=== PATIENT | male | born 1950 | race Caucasian/White ===

== ENCOUNTER 2017-07-04 21:38 | Inpatient (IN) | payer MEDICARE, OTHER ==
[~2017-07-04 21:38] MED LIST: ALEN1TAB48 PO; ALLO100T PO; APIX5TAB PO; FERR325T18 PO; FOLI800T PO; FURO20TA PO; GABA300C5 PO; LANTUS2P SQ; LISI-519 PO; METH2.5T PO; METO25TA3 PO; NOVONP2 SQ; PLAV75TA29 PO; PRED5TAB PO; VITA400T14 PO
[2017-07-04 21:47] VITALS: BP 114/78; PULSE 102; RESP 16; TEMP 98.8; O2SAT 98
[2017-07-04] MEDS ORDERED: PROTHROMBIN COMPLEX CONC INJ 3,500 UNITS in SYRINGE/BAG 1 EA IV ONE (23:00)
[2017-07-04] MEDS ORDERED: SODIUM CHLOR 0.9% 1000 ML INJ 1,000 ML IV SCH ×2 (23:04→23:30)
[2017-07-04] MEDS ORDERED: ACETAMINOPHEN 1000 MG/100 ML 100 ML IV PRN (23:15)
[2017-07-04] MEDS ORDERED: BISACODYL 10 MG SUPP RECTAL PRN (23:15)
[2017-07-04] MEDS ORDERED: MAGNESIUM HYDROXIDE SUSP 30 ML CUP PO PRN (23:15)
[2017-07-04] MEDS ORDERED: CHLORHEXIDINE GLUCONATE 2 % 1 PACK (2 CLOTHS) TOP PRN (23:15)
[2017-07-04] MEDS ORDERED: SENNOSIDES 8.6 MG TAB PO PRN (23:15)
[2017-07-04] MEDS ORDERED: MISCELLANEOUS NURSING INFORMATION XX SCH (23:15)
[2017-07-04] MEDS ORDERED: ONDANSETRON HCL 4 MG/2 ML VIAL IV PUSH PRN (23:15)
[2017-07-04] MEDS ORDERED: LACTULOSE SYRUP 20 GM/30 ML CUP PO PRN (23:15)
--- NOTE | 2017-07-04 23:15 | PD ---
HPI Chief Complaint: Injury Time Seen by Provider: 22:46 Travel History International Travel<30 days: No Contact w/Intl Traveler<30days: No Traveled to known affect area: No History of Present Illness HPI 67-year-old male was transferred from [facility] to the main ED for evaluation of intracranial hemorrhage. Patient has history of right leg DVT and CAD status post stents placement. Patient was on Coumadin and recently changed to Eliquis and Plavix. Patient has been walking around with a walker. Patient fell this afternoon. Patient is unable to tell me whether any loss of consciousness or head injury. Family members did not witness the fall. Family member found patient with laceration to the lower legs this afternoon and brought patient to the ED for evaluation. Patient denies any headache. Patient denies any facial pain. Patient denies any neck pain. Patient denies any chest pain or shortness of breath. Patient denies abdominal pain. Patient denies any focal weakness or numbness of the extremity. CT scan of the brain was done and patient was found to have subdural hemorrhage. Patient was transferred to the main ED for further treatment and admission. Patient has history of hypertension, diabetes, arthritis. PFSH Past Medical History Hx Anticoagulant Therapy: Yes Arthritis: Yes Cardiovascular Problems: Yes Diabetes: Yes Patient Takes Glucophage: No Hypertension: Yes Past Surgical History Coronary Stent: Yes Social History Alcohol Use: No Tobacco Use: No Substance Use: No Allergies-Medications (Allergen,Severity, Reaction): Coded Allergies: No Known Allergies (Verified Allergy, Severe, 07/04/17) Reported Meds & Prescriptions Reported Meds & Active Scripts Active Reported Novolin N Inj (Insulin Human NPH) 1,000 Unit/10 Ml Vial 0 SQ DIRECTED Sliding Scale As Directed. Lantus Inj (Insulin Glargine) 1,000 Unit/10 Ml Vial 8 Units SQ HS Furosemide 20 Mg Tab 20 Mg PO BID Allopurinol 100 Mg Tab 100 Mg PO DAILY Prednisone 5 Mg Tab 5 Mg PO DAILY Lisinopril 5 Mg Tab 5 Mg PO DAILY Plavix (Clopidogrel Bisulfate) 75 Mg Tab 75 Mg PO DAILY Ferrous Sulfate 325 Mg (65 Mg Iron) Tablet 325 Mg PO DAILY Metoprolol Tartrate 25 Mg Tab 25 Mg PO DAILY Folic Acid 0.8 Mg Tab 1,000 Mcg PO DAILY Vitamin D2 (Ergocalciferol) 400 Unit Tab 50,000 Units PO DAILY Eliquis (Apixaban) 5 Mg Tab 5 Mg PO BID Gabapentin 300 Mg Cap 300 Mg PO TID Methotrexate 2.5 Mg Tab 2.5 Mg PO Q7D Alendronate (Alendronate Sodium) 70 Mg Tab 70 Mg PO Q7D Review of Systems General / Constitutional: No: Fever Eyes: No: Visual changes HENT: No: Headaches Cardiovascular: No: Chest Pain or Discomfort Respiratory: No: Shortness of Breath Gastrointestinal: No: Abdominal Pain Genitourinary: No: Dysuria Musculoskeletal: No: Pain Skin: No Rash Neurologic: No: Weakness Psychiatric: No: Depression Endocrine: No: Polydipsia Hematologic/Lymphatic: No: Easy Bruising Physical Exam Narrative GENERAL: Well-nourished, well-developed patient. SKIN: Focused skin assessment warm/dry. HEAD: Normocephalic. EYES: No scleral icterus. No injection or drainage. Pupils status post cataract surgery. NECK: Supple, trachea midline. No JVD or lymphadenopathy. CARDIOVASCULAR: Regular rate and rhythm without murmurs, gallops, or rubs. RESPIRATORY: Breath sounds equal bilaterally. No accessory muscle use. GASTROINTESTINAL: Abdomen soft, non-tender, nondistended. MUSCULOSKELETAL: Patient had bilateral lower extremity avulsion lacerations. No active bleeding. BACK: Nontender without obvious deformity. No CVA tenderness. Neurologic exam: Patient is awake and alert oriented 3. Patient moves all extremity well. No obvious focal neurological deficit. Data Data Last Documented VS Vital Signs Date Time Temp Pulse Resp B/P (MAP) Pulse Ox O2 Delivery O2 Flow Rate FiO2 07/04/17 21:47 98.8 102 16 114/78 (90) 98 Orders Orders ^ Lab Follow Up (07/04/17 23:00) Prothrombin Complex Conc Inj (K[facility]ra In (07/04/17 23:00) MDM Medical Decision Making Medical Screen Exam Complete: Yes Emergency Medical Condition: Yes Differential Diagnosis Differential diagnosis includes subdural hemorrhage, lower extremity laceration. Narrative Course 67-year-old male with head injury and extremity injury. Status post fall. Patient is on Eliquis and Plavix. Patient has subdural hemorrhage. K Centra was order to be given. Patient will be admitted to trauma surgeon with consultation to neurosurgeon. Diagnosis Primary Impression: Subdural hemorrhage Additional Impressions: Anticoagulation management encounter Laceration of lower extremity Qualified Codes: S81.819A - Laceration without foreign body, unspecified lower leg, initial encounter Admitting Information Admitting Physician Requests: Admit Zuhair Yusuf MD Jul 04, 2017 23:15
[2017-07-05] VITALS (12 sets, daily range): BP systolic 100–133; BP diastolic 57–86; PULSE 66–112; RESP 15–23; TEMP 97.9–98.4; O2SAT 99–100
--- NOTE | 2017-07-05 01:45 | RADRPT ---
EXAM DATE/TIME: 07/05/2017 01:27 [facility] COMPARISON: No previous studies available for comparison. INDICATIONS : Trauma. Fall. Follow up hemorrhAGE. RADIATION DOSE: 56.35 CTDIvol (mGy) MEDICAL HISTORY : Cardiovascular disease. Hypertension. Diabetes mellitus type 2. SURGICAL HISTORY : Coronary artery stent. ENCOUNTER: Subsequent ACUITY: 1 day PAIN SCALE: 5/10 LOCATION: cranial TECHNIQUE: Multiple contiguous axial images were obtained of the head. Using automated exposure control and adj ustment of the mA and/or kV according to patient size, radiation dose was kept as low as reasonably a chievable to obtain optimal diagnostic quality images. DICOM format image data is available electro nically for review and comparison. FINDINGS: Comparison is July 04. There is a small subdural hematoma in the anterior interhemispheric fissure, stable. 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 Atrophy and white matter ischemic changes again noted. CONCLUSION: 1. Stable small anterior interhemispheric subdural hematoma since July 04. Stable lytic lesion right frontal bone. Rah Philip MD on July 05, 2017 at 1:41 Board Certified Radiologist. This report was verified electronically.
--- NOTE | 2017-07-05 02:01 | RADRPT ---
EXAM DATE/TIME: 07/05/2017 01:30 [facility] COMPARISON: No previous studies available for comparison. INDICATIONS : Trauma. Fall. ORAL CONTRAST: No oral contrast ingested. RADIATION DOSE: 9.22 CTDIvol (mGy) ; Combined studies - Thorax/Abdomen/Pelvis MEDICAL HISTORY : Cardiovascular disease. Hypertension. Diabetes mellitus type 2. SURGICAL HISTORY : Coronary artery stent. ENCOUNTER: Initial ACUITY: 1 day PAIN SCALE: 0/10 LOCATION: abdomen TECHNIQUE: Volumetric scanning of the abdomen and pelvis was performed. Using automated exposure control and ad justment of the mA and/or kV according to patient size, radiation dose was kept as low as reasonably achievable to obtain optimal diagnostic quality images. DICOM format image data is available electro nically for review and comparison. FINDINGS: Mild dependent atelectasis of the lungs. No pleural effusion. Trace pericardial fluid. Moderate coron surinder calcifications. No acute findings in the liver, spleen, adrenals or pancreas. Nonobstructing small right renal vascul ar calcification. 3.3 cm cyst midpole right kidney. No free fluid. No bowel obstruction. No adenopathy. Chronic degenerative disc disease in the lower thoracic and lumbar spine. Smooth endplate depressions in the lumbar spine at L5, L2, L1 as well as T11 and T12 appear chronic. CONCLUSION: 1. 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 Extensive vacuum disc phenomenon. 2. No acute traumatic injury within the abdomen and pelvis. Right renal cyst and nonobstructing 3 mm calcification. Rah Philip MD on July 05, 2017 at 1:53 Board Certified Radiologist. This report was verified electronically.
--- NOTE | 2017-07-05 02:05 | RADRPT ---
EXAM DATE/TIME: 07/05/2017 01:30 [facility] COMPARISON: No previous studies available for comparison. INDICATIONS : Trauma. Fall. RADIATION DOSE: 9.22 CTDIvol (mGy) ; Combined studies - Thorax/Abdomen/Pelvis MEDICAL HISTORY : Cardiovascular disease. Hypertension. Diabetes mellitus type 2. SURGICAL HISTORY : Coronary artery stent. ENCOUNTER: Initial ACUITY: 1 day PAIN SCALE: 0/10 LOCATION: chest TECHNIQUE: Volumetric scanning of the chest was performed. Using automated exposure control and adjustment of t he mA and/or kV according to patient size, radiation dose was kept as low as reasonably achievable to obtain optimal diagnostic quality images. DICOM format image data is available electronically for r eview and comparison. Follow-up recommendations for detected pulmonary nodules are based at a minimum on nodule size and pa tient risk factors according to Fleischner Society Guidelines. FINDINGS: LUNGS: There is no consolidation or pneumothorax. Dependent atelectasis in the lungs. No concerning pulmona ry nodule is visualized. PLEURAE: There is no pleural thickening or pleural effusion. MEDIASTINUM: The heart and great vessels demonstrate no acute abnormality. There is no mediastinal or hilar lymph adenopathy. Prominent mediastinal fat deposition. Moderate to severe coronary calcifications. AXILLAE: Within normal limits. No lymphadenopathy. MUSCULOSKELETAL: Bones are osteopenic. Severe compression deformity of T4 which appears old. No soft tissue swelling. Mild compression deformity of T11 also appears old. MISCELLANEOUS: The visualized upper abdominal organs demonstrate no acute abnormality. CONCLUSION: 1. Negative for acute traumatic injury. Severe compression deformity of T4 and mild compression defor mity of T11 probably old and associated with osteopenia. No paravertebral soft tissue swelling. Moder ate to severe coronary calcifications. Dependent atelectasis in the lungs. Rah Philpi MD on July 05, 2017 at 2:00 Board Certified Radiologist. This report was verified electronically.
[2017-07-05 02:33] LABS: PROTHROMBIN TIME - PATIENT 10.3 SEC (9.8-11.6)
[2017-07-05 02:35] LABS: AUTOMATED NEUTROPHIL # 5.4 TH/MM3 (1.8-7.7); BASOPHIL % 0.1 % (0.0-2.0); EOSINOPHIL % 0.8 % (0.0-4.0); HEMOGLOBIN 8.5 GM/DL (13.0-17.0); LYMPH % 8.4 % (9.0-44.0); LYMPHOCYTE # 0.5 TH/MM3 (1.0-4.8); MEAN CELL VOLUME 91.3 FL (80.0-100.0); MEAN CORPUSCULAR HEMOGLOBIN 32.2 PG (27.0-34.0); MEAN CORPUSCULAR HGB CONC 35.2 % (32.0-36.0); MEAN PLATELET VOLUME 6.2 FL (7.0-11.0); MONO % 1.3 % (0.0-8.0); MONOCYTE # 0.1 TH/MM3 (0-0.9); NEUT % 89.4 % (16.0-70.0); PLATELET COUNT 243 TH/MM3 (150-450); RED BLOOD COUNT 2.63 MIL/MM3 (4.50-5.90); RED CELL DISTRIBUTION WIDTH 17.9 % (11.6-17.2)
[2017-07-05 02:52] LABS: BICARBONATE 21.2 MEQ/L (21.0-32.0); CALCIUM 8.9 MG/DL (8.5-10.1); CREATININE 1.26 MG/DL (0.60-1.30)
[2017-07-05] MEDS ORDERED: CHLORHEXIDINE GLUCONATE 2 % 1 PACK (2 CLOTHS) TOP SCH (04:00)
[2017-07-05] MEDS ORDERED: ALENDRONATE SODIUM 70 MG TAB PO SCH (06:30)
[2017-07-05] MEDS ORDERED: GLUCAGON 1 MG/ML VIAL OTHER PRN (06:30)
[2017-07-05] MEDS ORDERED: DEXTROSE 50% IN WATER 50 ML VIAL(D50) IV PUSH PRN (06:30)
[2017-07-05] MEDS: INSULIN NovoLIN REGULAR SUPPLEMENTAL SCALE SQ SCH ×5 (08:00→20:55)
--- NOTE | 2017-07-05 08:14 | HHI.HP ---
History of Present Illness Primary Care Physician Johny Hahn MD Admission Diagnosis Subdural hemorrhage. Lower extremity lacerations Diagnoses: History of Present Illness 67 y.o male-with multiple medical problems-on eliquis and plavix fell as he was walking with his walker-GCS 15,no complaints-open wound left tib fib -transfer from [facility]-CT head shows SDH. Review of Systems Constitutional: DENIES: Diaphoretic episodes, Fatigue, Fever, Weight gain, Weight loss, Chills, Dizziness, Change in appetite, Night Sweats Endocrine: DENIES: Heat/cold intolerance, Polydipsia, Polyuria, Polyphagia Eyes: DENIES: Blurred vision, Eye pain Ears, nose, mouth, throat: DENIES: Tinnitus, Hearing loss, Vertigo, Nasal discharge, Oral lesions, Throat pain, Hoarseness, Ear Pain, Running Nose, Epistaxis, Sinus Pain, Toothache, Odynophagia Cardiovascular: DENIES: Chest pain, Palpitations, Syncope, Dyspnea on Exertion , PND, Lower Extremity Edema, Orthopnea, Claudication Gastrointestinal: DENIES: Abdominal pain, Black stools, Bloody stools, Constipation, Diarrhea, Nausea, Vomiting, Difficulty Swallowing, Anorexia Musculoskeletal: DENIES: Joint pain, Muscle aches, Stiffness, Joint Swelling, Back pain, Neck pain Integumentary: DENIES: Abnormal pigmentation, Nail changes, Pruritus, Rash Hematologic/lymphatic: DENIES: Bruising, Lymphadenopathy Neurologic: COMPLAINS OF: Abnormal gait Psychiatric: DENIES: Anxiety, Confusion, Mood changes, Depression, Hallucinations, Agitation, Suicidal Ideation, Homicidal Ideation, Delusions Past Family Social History Allergies: Coded Allergies: No Known Allergies (Verified Allergy, Severe, 07/04/17) Past Medical History DM ,CAD Past Surgical History stent placement Family History none Social History retired Physical Exam Vital Signs Vital Signs Date Time Temp Pulse Resp B/P (MAP) Pulse Ox O2 Delivery O2 Flow Rate FiO2 07/05/17 06:00 91 07/05/17 04:00 66 07/05/17 04:00 98.2 23 104/70 (81) 99 07/05/17 02:00 80 07/05/17 01:00 Room Air 07/05/17 01:00 97.9 84 20 125/70 (88) 100 07/04/17 21:47 98.8 102 16 114/78 (90) 98 Physical Exam GENERAL: This is a well-nourished, well-developed patient, in no apparent distress. SKIN: Cool and dry. HEAD: Atraumatic. Normocephalic. No temporal or scalp tenderness. EYES: Pupils equal round and reactive. Extraocular motions intact. No scleral icterus. No injection or drainage. ENT: Nose without bleeding, Airway patent. NECK: Trachea midline. No JVD or lymphadenopathy. Supple, nontender CARDIOVASCULAR: Regular rate and rhythm without murmurs, gallops, or rubs. RESPIRATORY: Clear to auscultation. Breath sounds equal bilaterally. No wheezes , rales, or rhonchi. GASTROINTESTINAL: Abdomen soft, non-tender, nondistended. . No guarding. MUSCULOSKELETAL: Extremities no swelling or hematoma,open wound left tib fib closed with steri strips. NEUROLOGICAL: Awake and alert.. Normal speech.[id number] Laboratory Laboratory Tests Test 07/05/17 01:00 07/05/17 02:10 07/05/17 02:19 Nasal Screen MRSA (PCR) MRSA NOT DETECTED Prothrombin Time 10.3 Prothromb Time International Ratio 1.0 White Blood Count 6.0 Red Blood Count 2.63 Hemoglobin 8.5 Hematocrit 24.0 Mean Corpuscular Volume 91.3 Mean Corpuscular Hemoglobin 32.2 Mean Corpuscular Hemoglobin Concent 35.2 Red Cell Distribution Width 17.9 Platelet Count 243 Mean Platelet Volume 6.2 Neutrophils (%) (Auto) 89.4 Lymphocytes (%) (Auto) 8.4 Monocytes (%) (Auto) 1.3 Eosinophils (%) (Auto) 0.8 Basophils (%) (Auto) 0.1 Neutrophils # (Auto) 5.4 Lymphocytes # (Auto) 0.5 Monocytes # (Auto) 0.1 Eosinophils # (Auto) 0.0 Basophils # (Auto) 0.0 CBC Comment DIFF FINAL Differential Comment Blood Urea Nitrogen 44 Creatinine 1.26 Random Glucose 199 Calcium Level 8.9 Sodium Level 143 Potassium Level 4.4 Chloride Level 112 Carbon Dioxide Level 21.2 Anion Gap 10 Estimat Glomerular Filtration Rate 57 Result Diagram: 07/05/1721807/05/17218 Caprini VTE Risk Assessment Caprini VTE Risk Assessment: Mod/High Risk (score >= 2) VTE Pharm Contraindication: High risk for bleeding Caprini Risk Assessment Model Point Value = 1 Point Value = 2 Point Value = 3 Point Value = 5 Age 41-60 Minor surgery BMI > 25 kg/m2 Swollen legs Varicose veins or History of unexplained or recurrent spontaneous Oral contraceptives or hormone replacement Sepsis (< 1 month) Serious lung disease, including pneumonia (< 1 month) Abnormal pulmonary function Acute myocardial infarction Congestive heart failure (< 1 month) History of inflammatory bowel disease Medical patient at bed rest Age 61-74 Arthroscopic surgery Major open surgery (> 45 min) Laparoscopic surgery (> 45 min) Malignancy Confined to bed (> 72 hours) Immobilizing plaster cast Central venous access Age >= 75 History of VTE Family history of VTE Factor V Leiden Prothrombin [id number] Lupus anticoagulant Anticardiolipin antibodies Elevated serum homocysteine Heparin-induced thrombocytopenia Other congenital or acquired thrombophilia Stroke (< 1 month) Elective arthroplasty Hip, pelvis, or leg fracture Acute spinal cord injury (< 1 month) Prophylaxis Regimen Total Risk Factor Score Risk Level Prophylaxis Regimen 0-1 Low Early ambulation 2 Moderate Order ONE of the following: *Sequential Compression Device (SCD) *Heparin 5000 units SQ BID 3-4 Higher Order ONE of the following medications: *Heparin 5000 units SQ TID *Enoxaparin/Lovenox 40 mg SQ daily (WT < 150 kg, CrCl > 30 mL/min) *Enoxaparin/Lovenox 30 mg SQ daily (WT < 150 kg, CrCl > 10-29 mL/min) *Enoxaparin/Lovenox 30 mg SQ BID (WT < 150 kg, CrCl > 30 mL/min) AND/OR *Sequential Compression Device (SCD) 5 or more Highest Order ONE of the following medications: *Heparin 5000 units SQ TID (Preferred with Epidurals) *Enoxaparin/Lovenox 40 mg SQ daily (WT < 150 kg, CrCl > 30 mL/min) *Enoxaparin/Lovenox 30 mg SQ daily (WT < 150 kg, CrCl > 10-29 mL/min) *Enoxaparin/Lovenox 30 mg SQ BID (WT < 150 kg, CrCl > 30 mL/min) AND *Sequential Compression Device (SCD) Assessment and Plan Assessment and Plan SDH K Centra given for partial reversal of eliquis CT CAP-no signs of injury admitted to [facility] neuro checks NS consult Chrissy Jean MD Jul 05, 2017 08:14
[2017-07-05] MEDS: ERGOCALCIFEROL (VIT D2) 50,000 UNIT CAP PO SCH ×2 (09:00→10:34)
[2017-07-05 10:00] LABS: PROTHROMBIN TIME - PATIENT 10.5 SEC (9.8-11.6)
[2017-07-05] MEDS: GABAPENTIN 300 MG CAP PO SCH ×3 (10:09→17:19)
[2017-07-05] MEDS: DOCUSATE SODIUM 50 MG/SENNA 8.6 MG TAB PO SCH ×2 (10:09→20:55)
[2017-07-05] MEDS: ALLOPURINOL 100 MG TAB PO SCH (10:09)
[2017-07-05] MEDS: FERROUS SULFATE 325 MG (65 MG ELEMENTAL IRON) TAB PO SCH (10:10)
[2017-07-05] MEDS: FOLIC ACID 1 MG TAB PO SCH (10:10)
[2017-07-05] MEDS: LISINOPRIL 5 MG TAB PO SCH (10:34)
[2017-07-05] MEDS: predniSONE 5 MG TAB PO SCH (10:34)
[2017-07-05] MEDS: METOPROLOL TARTRATE 25 MG TAB PO SCH (10:34)
[2017-07-05] MEDS: FUROSEMIDE 20 MG TAB PO SCH ×2 (10:35→20:56)
--- NOTE | 2017-07-05 11:16 | RADRPT ---
EXAM DATE/TIME: 07/05/2017 10:43 [facility] COMPARISON: CT BRAIN W/O CONTRAST, July 05, 2017, 1:27. INDICATIONS : Follow up for fall yesterday RADIATION DOSE: 56.35 CTDIvol (mGy) MEDICAL HISTORY : Hypertension. Cardiovascular disease Diabetes SURGICAL HISTORY : None. ENCOUNTER: Initial ACUITY: 2 days PAIN SCALE: 4/10 LOCATION: cranial TECHNIQUE: Multiple contiguous axial images were obtained of the head. Using automated exposure control and adj ustment of the mA and/or kV according to patient size, radiation dose was kept as low as reasonably a chievable to obtain optimal diagnostic quality images. DICOM format image data is available electro nically for review and comparison. FINDINGS: There is a stable acute subdural hematoma along the anterior interhemispheric fissure which measures 7 mm in greatest width. Mild cerebral atrophy is again noted. Mild periventricular and subcortical wh ite matter small vessel ischemic changes are noted. Old infarcts are noted involving the head of the left caudate nucleus and bilateral cerebellar hemispheres. There is a stable lytic lesion involving r ight frontal bone. Mucosal thickening and wall thickening involving the left sphenoid sinus is consis tent with chronic sinusitis. CONCLUSION: 1. Stable acute subdural hematoma along the anterior interhemispheric fissure which measures 7 mm in greatest width. 2. Stable mild cerebral atrophy. 3. Mild periventricular white matter small vessel ischemic changes bilaterally. 4. 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 5. Stable lytic lesion involving the right frontal bone. 6. Chronic sinusitis involving the left sphenoid sinus. Cortes Mckeon MD on July 05, 2017 at 11:07 Board Certified Radiologist. This report was verified electronically.
[2017-07-05] MEDS ORDERED: ACETAMINOPHEN 325 MG TAB PO PRN (14:00)
--- NOTE | 2017-07-05 15:48 | HHI.CCPN ---
Subjective Brief History 67-year-old gentleman who fell backward from a standing position and hit his head sustaining subdural hemorrhage over the vertex of the brain Transfer to our institution as priority 1 trauma alert Patient is awake alert and oriented complaining about some headache CT scan reveals a small amount of subdural blood in the interhemispheric sagittal fissure and some old lacunar infarcts Patient is kept in ICU for further care Because of DVT about 3 years ago patient was kept on Eliquis and because of the cardiac stents placement in February and another hospital he was placed on Plavix Patient was immediately reversed with K Centra and placed in the ICU for further observation Neurosurgery consult is appreciated 24 Hour Review/Hospital Course Patient is awake alert and oriented Neurologically fully intact Repeat CT scan reveals residual slowly resolution off the subdural hemorrhage At this point is quite unclear why patient fell backward. Did he just lose the balance or is this a problem that has plagued him for a while Patient needs a basic neurovascular workup. CT angiogram of carotids has been ordered Considering the patient is hemodynamically stable he can transfer to the floor In addition most patients with deep venous thrombosis will go home on about 3-6 months of anticoagulation with Coumadin or one of the factor Xa inhibitors This patient has been on Eliquis for 5 years which is absurd unless he has some underlying hypercoagulable state which I am not aware of Either way patient cannot be on Eliquis for the time being On the other hand I have asked the daughter to bring in the card and documentation regarding his cardiac stents because of these are drug-eluting stent and patient definitely does need to be on Plavix and aspirin and risk of bleeding is exceeded by the risk off clotting of the cardiac stents Objective Vital Signs Date Time Temp Pulse Resp B/P (MAP) Pulse Ox O2 Delivery O2 Flow Rate FiO2 07/05/17 07:00 100 Room Air 07/05/17 06:00 91 07/05/17 04:00 98.2 23 104/70 (81) Intake and Output 07/05/17 07/05/17 07/06/17 08:00 16:00 00:00 Intake Total 120 ml 774 ml Output Total 400 ml 300 ml Balance -280 ml 474 ml Result Diagram: 07/05/17 0219 07/05/17 0219 Imaging Last [address] 07/05/17 1000 Signed Impressions: Service Date/Time: Wednesday, July 05, 2017 10:43 - CONCLUSION: 1. Stable acute subdural hematoma along the anterior interhemispheric fissure which measures 7 mm in greatest width. 2. Stable mild cerebral atrophy. 3. Mild periventricular white matter small vessel ischemic changes bilaterally. 4. Old lacunar infarcts involving the head of the left caudate nucleus and bilateral cerebellar hemispheres. 5. Stable lytic lesion involving the right frontal bone. 6. Chronic sinusitis involving the left sphenoid sinus. Cortes Mckeon MD Head CT 07/05/17 0100 Signed Impressions: Service Date/Time: Wednesday, July 05, 2017 01:27 - CONCLUSION: 1. Stable small anterior interhemispheric subdural hematoma since July 04. Stable lytic lesion right frontal bone. Rah Philip MD Chest CT 07/05/17 0000 Signed Impressions: Service Date/Time: Wednesday, July 05, 2017 01:30 - CONCLUSION: 1. Negative for acute traumatic injury. Severe compression deformity of T4 and mild compression deformity of T11 probably old and associated with osteopenia. No paravertebral soft tissue swelling. Moderate to severe coronary calcifications. Dependent atelectasis in the lungs. Rah Philip MD Abdomen/Pelvis CT 07/05/17 0000 Signed Impressions: Service Date/Time: Wednesday, July 05, 2017 01:30 - CONCLUSION: 1. 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 Extensive vacuum disc phenomenon. 2. No acute traumatic injury within the abdomen and pelvis. Right renal cyst and nonobstructing 3 mm calcification. Rah Philip MD Exam [employer] Awake alert oriented neurologically fully intact Hemodynamic/Cardiac Hemodynamically intact Pulmonary/Respiratory Bilateral good breath sounds Abdomen/GI Nutrition Abdomen soft active bowel sounds Renal/I&O Renal function preserved Assessment and Plan Attestation Critical care time 32 minutes Comfort Dinh MD Jul 05, 2017 15:48
[2017-07-05] MEDS ORDERED: IOHEXOL 350 MG/ML 10 ML VIAL (for RAD DIAG) IVCONTRAST ONE (16:41)
--- NOTE | 2017-07-05 16:43 | PD.CONS ---
History of Present Illness Service Neurosurgery Consult Requested By General surgery trauma service Reason for Consult Traumatic brain injury Primary Care Physician Johny Hahn MD Diagnoses: History of Present Illness 67-year-old gentleman who is examined and interviewed with a pantograph machine operator present. He states that he fell off of a seated walker at home yesterday and struck his head with positive loss of consciousness. He complains of only mild residual headache with no vertigo nausea or vomiting. No significant neck or back pain. He gives a history of chronic left lower extremity pain since a prostate surgery in 2012 after which she developed initial lower extremity edema and eventual left hip pain. He states that he has had this extensively evaluated in the past including lumbar spine MRI scans. Review of Systems Constitutional: DENIES: Fatigue, Fever Eyes: COMPLAINS OF: Vision loss Ears, nose, mouth, throat: DENIES: Vertigo Cardiovascular: DENIES: Chest pain Gastrointestinal: DENIES: Nausea, Vomiting Musculoskeletal: DENIES: Joint pain, Back pain, Neck pain Neurologic: COMPLAINS OF: Abnormal gait, Headache Psychiatric: DENIES: Confusion Chronic loss of vision right eye Past Family Social History Allergies: Coded Allergies: No Known Allergies (Verified Allergy, Severe, 07/04/17) Past Medical History Coronary artery disease Diabetes Past Surgical History Prostate surgery 2012 Cardiac stent Right eye surgeries Reported Medications Reported Meds & Active Scripts Active Reported Novolin N Inj (Insulin Human NPH) 1,000 Unit/10 Ml Vial 0 SQ DIRECTED Sliding Scale As Directed. Lantus Inj (Insulin Glargine) 1,000 Unit/10 Ml Vial 8 Units SQ HS Furosemide 20 Mg Tab 20 Mg PO BID Allopurinol 100 Mg Tab 100 Mg PO DAILY Prednisone 5 Mg Tab 5 Mg PO DAILY Lisinopril 5 Mg Tab 5 Mg PO DAILY Plavix (Clopidogrel Bisulfate) 75 Mg Tab 75 Mg PO DAILY Ferrous Sulfate 325 Mg (65 Mg Iron) Tablet 325 Mg PO DAILY Metoprolol Tartrate 25 Mg Tab 25 Mg PO DAILY Folic Acid 0.8 Mg Tab 1,000 Mcg PO DAILY Vitamin D2 (Ergocalciferol) 400 Unit Tab 50,000 Units PO DAILY Eliquis (Apixaban) 5 Mg Tab 5 Mg PO BID Gabapentin 300 Mg Cap 300 Mg PO TID Methotrexate 2.5 Mg Tab 2.5 Mg PO Q7D Alendronate (Alendronate Sodium) 70 Mg Tab 70 Mg PO Q7D Family History Arthritis in his mother. Social History Does not smoke cigarettes or drink alcohol Physical Exam Vital Signs Vital Signs Date Time Temp Pulse Resp B/P (MAP) Pulse Ox O2 Delivery O2 Flow Rate FiO2 07/05/17 14:00 83 07/05/17 12:00 98.1 71 21 103/85 (91) 99 07/05/17 12:00 71 07/05/17 10:00 73 07/05/17 08:00 98.1 76 15 133/72 (92) 100 07/05/17 08:00 76 07/05/17 07:00 100 Room Air 07/05/17 06:00 91 07/05/17 04:00 66 07/05/17 04:00 98.2 66 23 104/70 (81) 99 07/05/17 02:00 80 07/05/17 01:00 Room Air 07/05/17 01:00 97.9 84 20 125/70 (88) 100 07/04/17 21:47 98.8 102 16 114/78 (90) 98 Physical Exam GENERAL: This is a well-nourished, well-developed patient, no apparent distress. SKIN: No abrasions, contusion, rash noted. Skin warm and dry. HEAD: Atraumatic. Normocephalic. Mild tenderness frontoparietal scalp EYES: Sclerae are clear and nonicteric ENT: No facial edema or ecchymosis. No periorbital edema. No CSF otorrhea or rhinorrhea. No palpable facial fracture or deformity. NECK: Trachea midline. No cervical spine tenderness. CARDIOVASCULAR: Regular rate and rhythm without murmurs, gallops, or rubs. RESPIRATORY: Clear to auscultation. Breath sounds equal bilaterally. No wheezes , rales, or rhonchi. GASTROINTESTINAL: Abdomen soft, non-tender, nondistended. No hepato-splenomegaly , or palpable masses. No guarding. MUSCULOSKELETAL: Extremities without cyanosis, or edema. No joint tenderness, or edema noted. No calf tenderness. Dorsalis pedis pulses 2+ bilateral Mild tenderness over the neck and lower back-stable baseline per patient NEUROLOGICAL: Awake and alert Oriented X 3 Speech is clear Conversant and appropriate Follow simple commands well Answers questions appropriately Reasonable judgment and insight Recent and remote memory are intact No evidence of anxiety or depression Facial sensorimotor, tongue, palate, sternocleidomastoid testing, hearing to finger rub testing, and bilateral shoulder shrug are all intact. Extraocular movements are intact. 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 Sensation is intact to light touch in all extremities Strength normal major flexion and extension groups all extremities Tristen's absent bilaterally No ankle clonus Plantar responses absent bilateral Fine motor movements intact upper extremities Laboratory Laboratory Tests Test 07/05/17 01:00 07/05/17 02:10 07/05/17 02:19 07/05/17 09:30 Nasal Screen MRSA (PCR) MRSA NOT DETECTED Prothrombin Time 10.3 10.5 Prothromb Time International Ratio 1.0 1.0 White Blood Count 6.0 Red Blood Count 2.63 Hemoglobin 8.5 Hematocrit 24.0 Mean Corpuscular Volume 91.3 Mean Corpuscular Hemoglobin 32.2 Mean Corpuscular Hemoglobin Concent 35.2 Red Cell Distribution Width 17.9 Platelet Count 243 Mean Platelet Volume 6.2 Neutrophils (%) (Auto) 89.4 Lymphocytes (%) (Auto) 8.4 Monocytes (%) (Auto) 1.3 Eosinophils (%) (Auto) 0.8 Basophils (%) (Auto) 0.1 Neutrophils # (Auto) 5.4 Lymphocytes # (Auto) 0.5 Monocytes # (Auto) 0.1 Eosinophils # (Auto) 0.0 Basophils # (Auto) 0.0 CBC Comment DIFF FINAL Differential Comment Blood Urea Nitrogen 44 Creatinine 1.26 Random Glucose 199 Calcium Level 8.9 Sodium Level 143 Potassium Level 4.4 Chloride Level 112 Carbon Dioxide Level 21.2 Anion Gap 10 Estimat Glomerular Filtration Rate 57 Result Diagram: 07/05/1721807/05/17218 Imaging 07/05/2017 CT scan head images reviewed. The patient has a moderate acute frontal interhemispheric subdural hematoma without significant mass-effect. Head CT 07/05/17 1000 Signed Impressions: Service Date/Time: Wednesday, July 05, 2017 10:43 - CONCLUSION: 1. Stable acute subdural hematoma along the anterior interhemispheric fissure which measures 7 mm in greatest width. 2. Stable mild cerebral atrophy. 3. Mild periventricular white matter small vessel ischemic changes bilaterally. 4. Old lacunar infarcts involving the head of the left caudate nucleus and bilateral cerebellar hemispheres. 5. Stable lytic lesion involving the right frontal bone. 6. Chronic sinusitis involving the left sphenoid sinus. Cortes Mckeon MD Chest CT 07/05/17 Signed Impressions: Service Date/Time: Wednesday, July 05, 2017 01:30 - CONCLUSION: 1. Negative for acute traumatic injury. Severe compression deformity of T4 and mild compression deformity of T11 probably old and associated with osteopenia. No paravertebral soft tissue swelling. Moderate to severe coronary calcifications. Dependent atelectasis in the lungs. Rah Philip MD Abdomen/Pelvis CT 07/05/17 Signed Impressions: Service Date/Time: Wednesday, July 05, 2017 01:30 - CONCLUSION: 1. 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 Extensive vacuum disc phenomenon. 2. No acute traumatic injury within the abdomen and pelvis. Right renal cyst and nonobstructing 3 mm calcification. Rah Philip MD Assessment and Plan Assessment and Plan Impression: 1. Traumatic brain injury. Mild to moderate frontal interhemispheric subdural hematoma-contusion without significant mass-effect. Recommendations: Patient has been on Eliquis, aspirin and Plavix-[facility] in the emergency room. Continue [facility] neurochecks Follow-up CT scan head. Nonchemical DVT prophylaxis Artem Chung MD Jul 05, 2017 16:43
[2017-07-05 16:54] LABS: PROTHROMBIN TIME - PATIENT 10.3 SEC (9.8-11.6)
--- NOTE | 2017-07-05 18:32 | RADRPT ---
EXAM DATE/TIME: 07/05/2017 16:13 [place] COMPARISON: No previous studies available for comparison. INDICATIONS : Unsteady gait, multiple falls. IV CONTRAST: 85 cc Omnipaque 350 (iohexol) IV RADIATION DOSE: 27.62 CTDIvol (mGy) MEDICAL HISTORY : Deep venous thrombosis. Hypertension. SURGICAL HISTORY : None. ENCOUNTER: Initial ACUITY: 1 day PAIN SCALE: 0/10 LOCATION: Bilateral neck Elevated flow velocities and ICA/CCA ratios have been found to correlate with increased degrees of vessel stenosis, calculated as percentage of diameter relative to a normal segment of distal ICA/CCA. TECHNIQUE: Volumetric scanning was performed using a multirow detector CT scanner. The data was post processed with a variety of visualization algorithms including full-volume maximum intensity projection, multip lanar sliding thin-slab reformation, curved-planar reformation, and surface-rendering techniques. Us ing automated exposure control and adjustment of the mA and/or kV according to patient size, radiatio n dose was kept as low as reasonably achievable to obtain optimal diagnostic quality images. DICOM f ormat image data is available electronically for review and comparison. FINDINGS: AORTIC ARCH: There is a four-vessel origin of the arch with the left vertebral emanating directly from the arch. A rch vessels are patent. No evidence of ostial narrowing. RIGHT CAROTID: The common carotid artery is intact. Atherosclerotic calcification of the carotid bulb extending into the internal with no significant stenosis. The external carotid artery is intact. LEFT CAROTID: The common carotid artery is intact. Atherosclerotic calcification in the carotid bulb with minimal a therosclerotic irregularity of the internal carotid ostial but no significant stenosis. The external carotid artery is intact. VERTEBRALS: The vertebral arteries have a symmetric diameter. No stenotic lesions are seen. CONCLUSION: 1. Mild atherosclerotic calcification of both carotid bulbs but no significant stenosis. Cervical ves sels are patent throughout. 2. Anatomic variant of the aortic arch the left vertebral emanating directly from the arch. Arch vess els are all patent. John Pruitt MD on July 05, 2017 at 18:27 Board Certified Radiologist. This report was verified electronically.
[2017-07-05] MEDS ORDERED: INSULIN DETEMIR 100 UNITS/ML VIAL SQ SCH (21:00)
[2017-07-05 22:24] LABS: PROTHROMBIN TIME - PATIENT 10.3 SEC (9.8-11.6)
[2017-07-06 02:27] VITALS: BP 94/50; PULSE 98; RESP 17; TEMP 97.9; O2SAT 98
[2017-07-06 03:44] LABS: AUTOMATED NEUTROPHIL # 5.3 TH/MM3 (1.8-7.7); BASOPHIL % 0.1 % (0.0-2.0); EOSINOPHIL # 0.1 TH/MM3 (0-0.4); EOSINOPHIL % 1.2 % (0.0-4.0); HEMATOCRIT 25.7 % (39.0-51.0); HEMOGLOBIN 9.2 GM/DL (13.0-17.0); LYMPH % 12.5 % (9.0-44.0); LYMPHOCYTE # 0.8 TH/MM3 (1.0-4.8); MEAN CORPUSCULAR HEMOGLOBIN 32.8 PG (27.0-34.0); MEAN PLATELET VOLUME 6.1 FL (7.0-11.0); MONO % 2.1 % (0.0-8.0); MONOCYTE # 0.1 TH/MM3 (0-0.9); NEUT % 84.1 % (16.0-70.0); PLATELET COUNT 260 TH/MM3 (150-450); RED BLOOD COUNT 2.82 MIL/MM3 (4.50-5.90); RED CELL DISTRIBUTION WIDTH 17.8 % (11.6-17.2); WHITE BLOOD COUNT 6.3 TH/MM3 (4.0-11.0)
[2017-07-06 03:55] LABS: BICARBONATE 24.2 MEQ/L (21.0-32.0); CALCIUM 8.6 MG/DL (8.5-10.1); CREATININE 1.23 MG/DL (0.60-1.30); PROTHROMBIN TIME - PATIENT 10.1 SEC (9.8-11.6)
[2017-07-06 05:35] VITALS: BP 90/56; PULSE 100; RESP 16; TEMP 97.9; O2SAT 98
[2017-07-06 08:00] VITALS: BP 107/68; PULSE 88; RESP 16; TEMP 97.2; O2SAT 98
[2017-07-06] MEDS: LISINOPRIL 5 MG TAB PO SCH (09:00)
[2017-07-06] MEDS: FUROSEMIDE 20 MG TAB PO SCH (09:00)
[2017-07-06] MEDS: ALLOPURINOL 100 MG TAB PO SCH (09:41)
[2017-07-06] MEDS: GABAPENTIN 300 MG CAP PO SCH ×2 (09:41→12:23)
[2017-07-06] MEDS: DOCUSATE SODIUM 50 MG/SENNA 8.6 MG TAB PO SCH (09:41)
[2017-07-06] MEDS: FOLIC ACID 1 MG TAB PO SCH (09:41)
[2017-07-06] MEDS: INSULIN NovoLIN REGULAR SUPPLEMENTAL SCALE SQ SCH ×2 (09:41→12:22)
[2017-07-06] MEDS: predniSONE 5 MG TAB PO SCH (09:41)
[2017-07-06] MEDS: ERGOCALCIFEROL (VIT D2) 50,000 UNIT CAP PO SCH (09:41)
[2017-07-06] MEDS: FERROUS SULFATE 325 MG (65 MG ELEMENTAL IRON) TAB PO SCH (09:41)
[2017-07-06] MEDS: METOPROLOL TARTRATE 25 MG TAB PO SCH (09:41)
[2017-07-06 09:53] VITALS: PULSE 136
[2017-07-06] MEDS ORDERED: INFLUENZA VIRUS VACCINE (QUADRIVALENT) 0.5 ML SYR IM ONE (10:00)
[2017-07-06] MEDS ORDERED: PNEUMOCOCCAL POLYVALENT INJ 25 MCG/0.5 ML SYR IM ONE (10:00)
[2017-07-06 10:39] LABS: PROTHROMBIN TIME - PATIENT 10.4 SEC (9.8-11.6)
[2017-07-06 12:00] VITALS: BP 98/56; PULSE 86; RESP 16; TEMP 97.9; O2SAT 100
--- NOTE | 2017-07-06 12:31 | HHI.NSPN ---
(Sonu Braden) History Chief Complaint: Chronic pain, numbness and weakness to left leg due to sciatica. (Sonu Braden) Interval History 07/05: 67-year-old gentleman who is examined and interviewed with a stripper cutter machine present. He states that he fell off of a seated walker at home yesterday and struck his head with positive loss of consciousness. He complains of only mild residual headache with no vertigo nausea or vomiting. No significant neck or back pain. He gives a history of chronic left lower extremity pain since a prostate surgery in 2012 after which she developed initial lower extremity edema and eventual left hip pain. He states that he has had this extensively evaluated in the past including lumbar spine MRI scans. 07/06: The patient is awake and alert in bed eating lunching and watching TV. He denies any headache, dizziness or double or blurry vision. He does have some aching to the lateral neck bilaterally that is chronic without any change. He does have chronic pain, numbness and weakness to the left lower extremity that is without change. He remains neurologically intact upon examination. (Sonu Braden) Exam Results 07/04/17 07/04/17 07/05/17 07/05/17 07/06/17 07/06/17 06:00 18:00 06:00 18:00 06:00 18:00 Intake Total 0 ml 1219 ml 360 ml Output Total 2125 ml Balance 0 ml -906 ml 360 ml Intake Oral 0 ml 880 ml 360 ml IV Total 339 ml Output Urine Total 2125 ml # Voids 8 # Bowel Movements 0 Vital Signs Date Time Temp Pulse Resp B/P (MAP) Pulse Ox O2 Delivery O2 Flow Rate FiO2 07/06/17 09:53 Room Air 07/06/17 09:53 136 07/06/17 08:00 97.2 88 16 107/68 (81) 98 07/06/17 05:35 97.9 100 16 90/56 (67) 98 07/06/17 02:27 97.9 98 17 94/50 (65) 98 07/05/17 22:00 99 07/05/17 20:00 96 07/05/17 20:00 98.4 112 20 123/86 (98) 100 07/05/17 19:00 99 Room Air 07/05/17 18:00 96 07/05/17 16:00 98.2 84 20 100/57 (71) 100 07/05/17 16:00 84 07/05/17 14:00 83 07/05/17 12:00 98.1 71 21 103/85 (91) 99 07/05/17 12:00 71 07/05/17 10:00 73 07/05/17 08:00 98.1 76 15 133/72 (92) 100 07/05/17 08:00 76 07/05/17 07:00 100 Room Air 07/05/17 06:00 91 07/05/17 04:00 66 07/05/17 04:00 98.2 66 23 104/70 (81) 99 07/05/17 02:00 80 07/05/17 01:00 Room Air 07/05/17 01:00 97.9 84 20 125/70 (88) 100 07/04/17 21:47 98.8 102 16 114/78 (90) 98 (Sonu Braden) Physical Examination GENERAL: Awake & alert in bed watching TV & eating lunch. Affect normal. Readily interacts. No apparent distress. HEENT: Normocephalic, atraumatic. Left pupil 2 mm brisk, right eye nonfunctional (chronic), EOMI. No otorrhea or rhinorrhea noted. MMM & pink, tongue midline to protrusion. MUSCULOSKELETAL: HARKINS spontaneously & purposefully w/o difficulty. Right meyer laceration w/intact dressing. NEUROLOGICAL: AAOx3. Speech clear & appropriate. Follows simple commands w/o difficulty. Facial sensorimotor, tongue, palate, sternocleidomastoid testing, hearing to finger rub testing, and bilateral shoulder shrug are all intact. Extraocular movements are intact. 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 Left pupil 2 mm brisk. Sensation decreased to LLE but intact to light touch to the other extremities. Muscle strength is normal to all major flexion & extension muscle groups of the extremities. (Sonu Braden) Lab, Micro, Other Results Recent Impressions Head CT 07/05/17 1000 Signed Impressions: Service Date/Time: Wednesday, July 05, 2017 10:43 - CONCLUSION: 1. Stable acute subdural hematoma along the anterior interhemispheric fissure which measures 7 mm in greatest width. 2. Stable mild cerebral atrophy. 3. Mild periventricular white matter small vessel ischemic changes bilaterally. 4. Old lacunar infarcts involving the head of the left caudate nucleus and bilateral cerebellar hemispheres. 5. Stable lytic lesion involving the right frontal bone. 6. Chronic sinusitis involving the left sphenoid sinus. Cortes Mckeon MD Head CT 07/05/17 0100 Signed Impressions: Service Date/Time: Wednesday, July 05, 2017 01:27 - CONCLUSION: 1. Stable small anterior interhemispheric subdural hematoma since July 04. Stable lytic lesion right frontal bone. Rah Philip MD Neck CTA 07/05/17 0000 Signed Impressions: Service Date/Time: Wednesday, July 05, 2017 16:13 - CONCLUSION: 1. Mild atherosclerotic calcification of both carotid bulbs but no significant stenosis. Cervical vessels are patent throughout. 2. Anatomic variant of the aortic arch the left vertebral emanating directly from the arch. Arch vessels are all patent. John Pruitt MD Chest CT 07/05/17 0000 Signed Impressions: Service Date/Time: Wednesday, July 05, 2017 01:30 - CONCLUSION: 1. Negative for acute traumatic injury. Severe compression deformity of T4 and mild compression deformity of T11 probably old and associated with osteopenia. No paravertebral soft tissue swelling. Moderate to severe coronary calcifications. Dependent atelectasis in the lungs. Rah Philip MD Abdomen/Pelvis CT 07/05/17 0000 Signed Impressions: Service Date/Time: Wednesday, July 05, 2017 01:30 - CONCLUSION: 1. 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 Extensive vacuum disc phenomenon. 2. No acute traumatic injury within the abdomen and pelvis. Right renal cyst and nonobstructing 3 mm calcification. Rah Philip MD Laboratory Tests Test 07/05/17 01:00 07/05/17 02:10 07/05/17 02:19 07/05/17 09:30 Nasal Screen MRSA (PCR) MRSA NOT DETECTED Prothrombin Time 10.3 SEC 10.5 SEC Prothromb Time International Ratio 1.0 RATIO 1.0 RATIO White Blood Count 6.0 TH/MM3 Red Blood Count 2.63 MIL/MM3 Hemoglobin 8.5 GM/DL Hematocrit 24.0 % Mean Corpuscular Volume 91.3 FL Mean Corpuscular Hemoglobin 32.2 PG Mean Corpuscular Hemoglobin Concent 35.2 % Red Cell Distribution Width 17.9 % Platelet Count 243 TH/MM3 Mean Platelet Volume 6.2 FL Neutrophils (%) (Auto) 89.4 % Lymphocytes (%) (Auto) 8.4 % Monocytes (%) (Auto) 1.3 % Eosinophils (%) (Auto) 0.8 % Basophils (%) (Auto) 0.1 % Neutrophils # (Auto) 5.4 TH/MM3 Lymphocytes # (Auto) 0.5 TH/MM3 Monocytes # (Auto) 0.1 TH/MM3 Eosinophils # (Auto) 0.0 TH/MM3 Basophils # (Auto) 0.0 TH/MM3 CBC Comment DIFF FINAL Differential Comment Blood Urea Nitrogen 44 MG/DL Creatinine 1.26 MG/DL Random Glucose 199 MG/DL Calcium Level 8.9 MG/DL Sodium Level 143 MEQ/L Potassium Level 4.4 MEQ/L Chloride Level 112 MEQ/L Carbon Dioxide Level 21.2 MEQ/L Anion Gap 10 MEQ/L Estimat Glomerular Filtration Rate 57 ML/MIN Test 07/05/17 15:25 07/05/17 21:46 07/06/17 03:20 07/06/17 09:58 Prothrombin Time 10.3 SEC 10.3 SEC 10.1 SEC 10.4 SEC Prothromb Time International Ratio 1.0 RATIO 1.0 RATIO 1.0 RATIO 1.0 RATIO White Blood Count 6.3 TH/MM3 Red Blood Count 2.82 MIL/MM3 Hemoglobin 9.2 GM/DL Hematocrit 25.7 % Mean Corpuscular Volume 91.0 FL Mean Corpuscular Hemoglobin 32.8 PG Mean Corpuscular Hemoglobin Concent 36.0 % Red Cell Distribution Width 17.8 % Platelet Count 260 TH/MM3 Mean Platelet Volume 6.1 FL Neutrophils (%) (Auto) 84.1 % Lymphocytes (%) (Auto) 12.5 % Monocytes (%) (Auto) 2.1 % Eosinophils (%) (Auto) 1.2 % Basophils (%) (Auto) 0.1 % Neutrophils # (Auto) 5.3 TH/MM3 Lymphocytes # (Auto) 0.8 TH/MM3 Monocytes # (Auto) 0.1 TH/MM3 Eosinophils # (Auto) 0.1 TH/MM3 Basophils # (Auto) 0.0 TH/MM3 CBC Comment DIFF FINAL Differential Comment Blood Urea Nitrogen 36 MG/DL Creatinine 1.23 MG/DL Random Glucose 166 MG/DL Calcium Level 8.6 MG/DL Sodium Level 141 MEQ/L Potassium Level 4.5 MEQ/L Chloride Level 108 MEQ/L Carbon Dioxide Level 24.2 MEQ/L Anion Gap 9 MEQ/L Estimat Glomerular Filtration Rate 59 ML/MIN (Sonu Braden) Medical Decision Making Impression and Plan Impression: 1. Traumatic brain injury. Mild to moderate frontal interhemispheric subdural hematoma-contusion without significant mass-effect. Patient has been on Eliquis, aspirin and Plavix[facility] in the emergency room. The patient is doing well today and remains neurologically intact. Reviewed labs for today. Improvement in haemoglobin level. INR 1.0. Sodium 141. Slightly improved eGFR. CT brain at 1043 demonstrated a stable anterior interhemispheric SDH. Stable chronic changes also noted. Physical Therapy felt that the patient was able to be discharged home w/Home Health for further therapy. Plan: Primary management per Trauma. Neuro checks. Stat CT brain for any decline in neuro status. Hold pharmacologic DVT prophylaxis. Mechanical DVT prophylaxis. Mobilise patient w/assistance as needed. Physical Therapy eval & tx. ADDENDUM at 1410: Discussed the patient with Dr Chung who reviewed the last CT brain. The patient is cleared for discharge from Neurosurgery's perspective. It is felt that the patient needs to be off his anticoagulation at least another 2 weeks due to his having had an interhemispheric bleed. The patient's [employer] Supervisor should weigh in on the risks and benefits of continued anticoagulation given the type of stent in place. The patient should call to make a follow up appointment in 2 to 3 weeks and to have an order placed for a repeat CT scan of the brain to be completed before his appointment. BET (Sonu Braden) Attending Statement The exam, history, and the medical decision-making described in the above note were completed with the assistance of the mid-level provider. I reviewed and agree with the findings presented. I attest that I had a [id number] encounter with the patient on the same day, and personally performed and documented my assessment and findings in the medical record. (Artem Chung MD) Sonu Braden Jul 06, 2017 12:31 Artem Chung MD Jul 07, 2017 15:15
--- NOTE | 2017-07-06 16:53 | HHI.DS ---
Discharge Summary Admission Date Jul 04, 2017 at 23:18 Discharge Date: Jul 06, 2017 Admitting Diagnosis Subdural hemorrhage. Lower extremity lacerations (1) Fall, initial encounter ICD Codes: W19.XXXA - Unspecified fall, initial encounter Diagnosis: Principal (2) Subdural hemorrhage ICD Codes: I62.00 - Nontraumatic subdural hemorrhage, unspecified Status: Acute (3) Laceration of lower extremity ICD Codes: S81.819A - Laceration without foreign body, unspecified lower leg, initial encounter Status: Acute Brief History S/P Fall CBC/BMP: 07/06/17 0320 07/06/17 0320 Significant Findings Laboratory Tests Test 07/05/17 01:00 07/05/17 02:10 07/05/17 02:19 07/05/17 09:30 Red Blood Count 2.63 MIL/MM3 (4.50-5.90) Hemoglobin 8.5 GM/DL (13.0-17.0) Hematocrit 24.0 % (39.0-51.0) Red Cell Distribution Width 17.9 % (11.6-17.2) Mean Platelet Volume 6.2 FL (7.0-11.0) Neutrophils (%) (Auto) 89.4 % (16.0-70.0) Lymphocytes (%) (Auto) 8.4 % (9.0-44.0) Lymphocytes # (Auto) 0.5 TH/MM3 (1.0-4.8) Blood Urea Nitrogen 44 MG/DL (7-18) Random Glucose 199 MG/DL (74-106) Chloride Level 112 MEQ/L (98-107) Estimat Glomerular Filtration Rate 57 ML/MIN (>89) Test 07/05/17 15:25 07/05/17 21:46 07/06/17 03:20 07/06/17 09:58 Red Blood Count 2.82 MIL/MM3 (4.50-5.90) Hemoglobin 9.2 GM/DL (13.0-17.0) Hematocrit 25.7 % (39.0-51.0) Red Cell Distribution Width 17.8 % (11.6-17.2) Mean Platelet Volume 6.1 FL (7.0-11.0) Neutrophils (%) (Auto) 84.1 % (16.0-70.0) Lymphocytes # (Auto) 0.8 TH/MM3 (1.0-4.8) Blood Urea Nitrogen 36 MG/DL (7-18) Random Glucose 166 MG/DL (74-106) Chloride Level 108 MEQ/L (98-107) Estimat Glomerular Filtration Rate 59 ML/MIN (>89) Imaging Last Impressions Head CT 07/05/17 1000 Signed Impressions: Service Date/Time: Wednesday, July 05, 2017 10:43 - CONCLUSION: 1. Stable acute subdural hematoma along the anterior interhemispheric fissure which measures 7 mm in greatest width. 2. Stable mild cerebral atrophy. 3. Mild periventricular white matter small vessel ischemic changes bilaterally. 4. Old lacunar infarcts involving the head of the left caudate nucleus and bilateral cerebellar hemispheres. 5. Stable lytic lesion involving the right frontal bone. 6. Chronic sinusitis involving the left sphenoid sinus. Cortes Mckeon MD Neck CTA 07/05/17 0000 Signed Impressions: Service Date/Time: Wednesday, July 05, 2017 16:13 - CONCLUSION: 1. Mild atherosclerotic calcification of both carotid bulbs but no significant stenosis. Cervical vessels are patent throughout. 2. Anatomic variant of the aortic arch the left vertebral emanating directly from the arch. Arch vessels are all patent. John Pruitt MD Chest CT 07/05/17 0000 Signed Impressions: Service Date/Time: Wednesday, July 05, 2017 01:30 - CONCLUSION: 1. Negative for acute traumatic injury. Severe compression deformity of T4 and mild compression deformity of T11 probably old and associated with osteopenia. No paravertebral soft tissue swelling. Moderate to severe coronary calcifications. Dependent atelectasis in the lungs. Rah Philip MD Abdomen/Pelvis CT 07/05/17 0000 Signed Impressions: Service Date/Time: Wednesday, July 05, 2017 01:30 - CONCLUSION: 1. 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 Extensive vacuum disc phenomenon. 2. No acute traumatic injury within the abdomen and pelvis. Right renal cyst and nonobstructing 3 mm calcification. Rah Philip MD PE at Discharge GENERAL: 67 year old well-nourished male OOB in chair. SKIN: Warm and dry. HEAD: Normocephalic. ENT: No nasal bleeding or discharge. Mucous membranes pink and moist. NECK: Trachea midline. No JVD. CARDIOVASCULAR: Regular rate and rhythm. RESPIRATORY: No accessory muscle use. Clear to auscultation. Breath sounds equal bilaterally. GASTROINTESTINAL: Abdomen soft, non-tender, nondistended. + BS MUSCULOSKELETAL: Extremities without cyanosis, or edema. RLE dressing removed. RIGHT lateral calf avulsion with steri-strips in place. LEFT calf avulsion CASSIE. MAEW, + perfused NEUROLOGICAL: Awake and alert. Normal speech, primarily Martiniquais speaking. Hospital Course [place]AR[place]: Fell from the standing position while trying to sit down. ? LOC. On Eliquis and Plavix at home, K-centra given. GCS = 15. Trauma transfer. INJURIES: [facility] BILAT calf avulsions PMHx: CVA, Chronic anemia, Right leg DVT (on Eliquis/Plavix), CAD, HTN, Type I DM, arthritis, gout, osteoporosis [facility] Neurosurgery consulted and cleared for DC. F/U outpatient Supportive care Hold Plavix and Eliquis 07/05 CT Brain shows stable [facility] GCS 15 Post-concussive education BILAT calf avulsions Supportive care Steri strips in place Cleanse wounds daily with soap and water. Leave open to air F/U with PCP in 1 week Plan of care d/w patient and RN at bedside. Collaborating Trauma MD agrees with plan. Patient is clear from Trauma surgery standpoint to safely DC home. Pt Condition on Discharge: Stable Discharge Disposition: Discharge Home Discharge Instructions DIET: Follow Instructions for: As Tolerated, No Restrictions Activities you can perform: Full Weight Bearing Activities to Avoid: Concussion Sports, Contact Sports, Strenuous Activity Justice Ramírez Jul 06, 2017 16:53
== END 2017-07-06 18:26 | disposition home or self-care (01) | DRG 84 ==
LOC: NEPE 21:38 → NEDA 23:18 → N03A 07-05 01:06 → N06B 07-05 23:51
PROVIDERS: ADMIT Surgery Trauma Surgery; ATTEND Surgery Trauma Surgery
DX: S06.5X9A Traumatic subdural hemorrhage with loss of consciousness of unspecified duration, initial encounter (principal); E10.69 Type 1 diabetes mellitus with other specified complication; S81.812A Laceration without foreign body, left lower leg, initial encounter; S81.811A Laceration without foreign body, right lower leg, initial encounter; I10 Essential (primary) hypertension; I25.10 Atherosclerotic heart disease of native coronary artery without angina pectoris; R40.2413 Glasgow coma scale score 13-15, at hospital admission; M54.30 Sciatica, unspecified side; H54.7 Unspecified visual loss; D64.9 Anemia, unspecified; M81.0 Age-related osteoporosis without current pathological fracture; M10.9 Gout, unspecified; M19.90 Unspecified osteoarthritis, unspecified site; Z23 Encounter for immunization; W18.30XA Fall on same level, unspecified, initial encounter; Z79.01 Long term (current) use of anticoagulants; Z79.4 Long term (current) use of insulin; Z86.718 Personal history of other venous thrombosis and embolism; Z86.73 Personal history of transient ischemic attack (TIA), and cerebral infarction without residual deficits; Z95.5 Presence of coronary angioplasty implant and graft
CPT/HCPCS: 70450; 70498; 71250; 74176; 80048; 82948; 85025; 85610; 86850; 86900; 86901; 87641; 90471; 90686; 94150; C9132; G0008; J7030; J7512; Q2038; Q9967